=== PATIENT | male | born 1990 | race Caucasian/White ===

== ENCOUNTER 2025-01-05 06:11 | Emergency (ER) | payer MEDICAID ==
[~2025-01-05] VITALS: Ht 162.6 cm; Wt 68.2 kg
[2025-01-05 06:20] VITALS: TEMP 97.6
[2025-01-05] MEDS ORDERED: RABIES IMMUNE GLOBULIN 150 UNIT/ML IM. ONE (06:45)
[2025-01-05] MEDS ORDERED: AMOX-457 PO (06:52)
[2025-01-05] MEDS: RABIES VACCINE, HUMAN DIPLOID/PF 2.5 UNITS/ML VIAL IM. ONE (07:52)
[2025-01-05] MEDS: RABIES IMMUNE GLOBULIN/PF 150 UNITS/ML 10 ML VIAL IM. ONE (07:53)
[2025-01-05] MEDS: PERTUSS(ACELL),DIPH,TET/PF 0.5 ML SYRINGE [ADULT] IM. ONE (07:54)
[2025-01-05 08:12] VITALS: BP 112/78; PULSE 78; RESP 16; O2SAT 98
== END 2025-01-05 08:13 | disposition home or self-care (01) ==
LOC: EMS 06:14
DX: S81.859A Open bite, unspecified lower leg, initial encounter (principal); Z79.899 Other long term (current) drug therapy; W54.0XXA Bitten by dog, initial encounter; Y93.89 Activity, other specified; Y92.89 Other specified places as the place of occurrence of the external cause; Y99.8 Other external cause status
CPT/HCPCS: 90375; 90471; 90675; 90715; 96372; 99284

== ENCOUNTER 2025-01-08 06:13 | Emergency (ER) | payer MEDICAID ==
[~2025-01-08] VITALS: Ht 162.6 cm; Wt 68.0 kg
[~2025-01-08 06:13] MED LIST: AMOX-457 PO
[2025-01-08] MEDS: RABIES VACCINE, HUMAN DIPLOID/PF 2.5 UNITS/ML VIAL IM. ONE (07:26)
[2025-01-08 07:27] VITALS: BP 118/68; PULSE 63; RESP 18; TEMP 98.2; O2SAT 99
== END 2025-01-08 07:30 | disposition home or self-care (01) ==
LOC: EMS 06:18
DX: S81.859A Open bite, unspecified lower leg, initial encounter (principal); Z79.899 Other long term (current) drug therapy; W54.0XXA Bitten by dog, initial encounter; Y93.89 Activity, other specified; Y92.89 Other specified places as the place of occurrence of the external cause; Y99.8 Other external cause status
CPT/HCPCS: 90471; 90675; 99283

== ENCOUNTER 2025-01-12 05:53 | Emergency (ER) | payer MEDICAID ==
[~2025-01-12] VITALS: Ht 162.6 cm; Wt 68.0 kg
[2025-01-12 06:22] VITALS: BP 116/91; PULSE 75; RESP 18; TEMP 98.2; O2SAT 97
[2025-01-12] MEDS: RABIES VACCINE, HUMAN DIPLOID/PF 2.5 UNITS/ML VIAL IM. ONE (06:40)
== END 2025-01-12 06:45 | disposition home or self-care (01) ==
LOC: EMS 05:54
DX: Z23 Encounter for immunization (principal); Z20.3 Contact with and (suspected) exposure to rabies
CPT/HCPCS: 90471; 90675; 99281

== ENCOUNTER 2025-01-19 06:05 | Emergency (ER) | payer MEDICAID ==
[~2025-01-19] VITALS: Ht 162.6 cm; Wt 70.5 kg
[2025-01-19 06:11] VITALS: BP 109/77; PULSE 74; RESP 16; TEMP 97.5; O2SAT 99
[2025-01-19] MEDS: RABIES VACCINE, HUMAN DIPLOID/PF 2.5 UNITS/ML VIAL IM. ONE (06:29)
== END 2025-01-19 06:35 | disposition home or self-care (01) ==
LOC: EMS 06:05
DX: Z23 Encounter for immunization (principal); Z79.899 Other long term (current) drug therapy
CPT/HCPCS: 90471; 90675; 99283